=== PATIENT | female | born 1995 | race Caucasian/White ===

== ENCOUNTER 2020-05-21 14:40 | Outpatient (CLI) | payer OTHER, MEDICAID, SELFPAY ==
[2020-05-21 16:12] LABS: Thyroid Stimulating Hormone 1.14 uIU/mL (0.36-3.74)
[2020-05-24 12:05] LABS: Testosterone Free 4.5 pg/mL (0.1-6.4); Testosterone Total 38 ng/dL (2-45)
[2020-05-25 15:21] LABS: DHEA-Sulfate 228 mcg/dL (18-391)
== END 2020-05-21 14:41 | disposition home or self-care (01) ==
PROVIDERS: PCP Family Medicine; Visit Provider Specialist
DX: L68.0 Hirsutism (principal); D22.5 Melanocytic nevi of trunk
CPT/HCPCS: 36415; 82627; 83498; 84402; 84403; 84443; 88305; 88342

== ENCOUNTER 2021-07-10 12:12 | Outpatient (CLI) | payer OTHER, SELFPAY ==
[2021-07-10 13:20] LABS: SARS-CoV-2 RNA PCR Negative (Negative)
== END 2021-07-10 12:13 | disposition home or self-care (01) ==
LOC: CHSLAB 12:15
PROVIDERS: PCP Family Medicine; Visit Provider Family Medicine
DX: J02.9 Acute pharyngitis, unspecified (principal); Z20.822 Contact with and (suspected) exposure to COVID-19
CPT/HCPCS: C9803; U0003; U0005

== ENCOUNTER 2023-05-07 07:08 | Outpatient (CLI) | payer OTHER, SELFPAY ==
--- NOTE | ~2023-05-07 | US_ITS ---
EXAMINATION: US soft tissue abdomen DATE: 05/07/2023 07:33 INDICATION: Localized swelling, mass and lump, unspecified. Palpable mass at umbilicus. TECHNIQUE: Multiple grayscale and Doppler ultrasound images of the abdomen were obtained. COMPARISON: None FINDINGS: There is no abnormal mass or hernia in the patient's area of concern at the umbilicus. IMPRESSION: 1. No abnormal mass or hernia in the patient's area of concern at the umbilicus. Reviewed, dictated and finalized at location E. COOLERS INSTALLER IMPRESSION: 1. No abnormal mass or hernia in the patient's area of concern at the umbilicus .
== END 2023-05-07 07:09 | disposition home or self-care (01) ==
LOC: CHSIMG 07:10
PROVIDERS: PCP Family Medicine; Visit Provider Family Medicine
DX: R22.9 Localized swelling, mass and lump, unspecified (principal)
CPT/HCPCS: 76705

== ENCOUNTER 2024-03-27 15:13 | Outpatient (CLI) | payer OTHER, SELFPAY ==
[2024-03-27 15:27] LABS: Basophils Absolute Auto 0.07 K/mm3 (0.00-0.10); Basophils Percent Auto 0.9 % (0.0-1.0); Eosinophils Absolute Auto 0.45 K/mm3 (0.02-0.50); Hematocrit 39.2 % (35.0-49.0); Hemoglobin 13.1 g/dL (12.0-15.0); Immature Granulocyte Absolute 0.04 K/mm3 (0.00-0.00); Immature Granulocyte Percent A 0.5 % (0.0-0.0); Lymphocytes Absolute Auto 2.09 K/mm3 (1.10-4.50); Lymphocytes Percent Auto 27.7 % (18.0-42.0); Mean Corpuscular HGB Conc 33.4 g/dL (32-36); Mean Corpuscular Hemoglobin 27.8 pg (27.0-31.0); Mean Corpuscular Volume 83.1 fL (78.0-102.0); Mean Platelet Volume 10.9 fl (9.2-11.8); Monocytes Absolute Auto 0.47 K/mm3 (0.10-0.90); Monocytes Percent Auto 6.2 % (2.0-11.0); Neutrophils Absolute Auto 4.43 K/mm3 (1.70-7.20); Neutrophils Percent Auto 58.7 % (50.0-70.0); Platelet Count Result 310 K/mm3 (150-420); Red Blood Count 4.72 M/mm3 (4.20-5.40); Red Cell Distribution Width 13.1 % (11.6-14.4); White Blood Count 7.6 K/mm3 (4.8-10.8)
[2024-03-27 16:53] LABS: Alkaline Phosphatase 118 U/L (46-116); Aspartate Amino Transferase 24 U/L (15-37); Bilirubin,Total 0.5 mg/dL (0.00-1.00); Calcium 9.3 mg/dL (8.5-10.1); Chloride 102 mmol/L (98-108); Estimated Glomerular Filt Rate > 60; Ferritin 40 ng/mL (8-252); Free T4 Free Thyroxine 0.87 ng/dL (0.76-1.46); Glucose 123 mg/dL (70-99); Iron 46 ug/dL (50-170); Potassium 4.2 mmol/L (3.5-5.1); Sodium 139 mmol/L (136-145); Thyroid Stimulating Hormone 1.92 uIU/mL (0.36-3.74); Total Protein 7.5 g/dL (6.4-8.2); Vitamin B12 687 pg/mL (193-986)
[2024-03-27 17:11] LABS: Alanine Aminotransferase 45 U/L (14-59); Anion Gap 10 mmol/L (4-12); Blood Urea Nitrogen 16 mg/dL (7-18); Carbon Dioxide 27 mmol/L (21-32); Osmolality Calculated 290 mOsm/kg (285-295)
[2024-03-28 10:24] LABS: Vitamin D 25 Hydroxy 11 ng/mL (30-100)
[2024-03-29 01:58] LABS: Total Triiodothyronine (T3) 123 ng/dL (76-181)
[2024-03-29 14:44] LABS: Hemoglobin A1C 5.4 % (<5.7)
== END 2024-03-27 15:14 | disposition home or self-care (01) ==
PROVIDERS: PCP Nurse Practitioner Family; Visit Provider Nurse Practitioner Family
DX: R53.83 Other fatigue (principal); R73.09 Other abnormal glucose; Z79.899 Other long term (current) drug therapy
CPT/HCPCS: 36415; 80053; 82306; 82607; 82728; 83036; 83540; 84439; 84443; 84480; 85025

== ENCOUNTER 2024-04-18 12:44 | Outpatient (CLI) | payer OTHER, SELFPAY | END 2024-04-18 12:45 | disposition home or self-care (01) | LOC: CHSLAB 12:48 | PROVIDERS: PCP Nurse Practitioner Family; Visit Provider Specialist | DX: D22.5 Melanocytic nevi of trunk (principal) | CPT/HCPCS: 88305 ==

== ENCOUNTER 2024-06-28 10:54 | Outpatient (CLI) | payer OTHER, SELFPAY ==
[2024-06-28 11:48] LABS: Alanine Aminotransferase 48 U/L (14-59); Albumin Level 4.1 g/dL (3.4-5.0); Alkaline Phosphatase 143 U/L (46-116); Anion Gap 13 mmol/L (4-12); Aspartate Amino Transferase 31 U/L (15-37); Bilirubin,Total 0.5 mg/dL (0.00-1.00); Blood Urea Nitrogen 13 mg/dL (7-18); Calcium 9.4 mg/dL (8.5-10.1); Carbon Dioxide 26 mmol/L (21-32); Chloride 103 mmol/L (98-108); Estimated Glomerular Filt Rate > 60; Glucose 98 mg/dL (70-99); Iron 51 ug/dL (50-170); Osmolality Calculated 294 mOsm/kg (285-295); Potassium 3.8 mmol/L (3.5-5.1); Sodium 142 mmol/L (136-145)
--- OUTSIDE RECORDS SUMMARY | 2024-06-28 12:36 | XMS_ITS | Referral Summary ---
Author Organization [facility] Address [address] [place] [address] Care Team Providers Care Derrick Boat Runner Name Role Phone Unavailable Primary Care Provider Unavailabl e Source Comments [facility],non-the rehabilitation [facility] Affiliates and Associated Physician Practices is amultiple site organization consisting of ambulatory clinics and hospital sitesin [place], [place], [place] and [place]. This disclosure is being madepursuant to the Care Everywhere program and may not contain all information available regarding this patient. Last updated 18.[facility] Social History Tobacco Use Types Packs/Day Years Used Date Smoking Tobacco: Never Assessed Sex and Gender Information Value Date Recorded Sex Assigned at Not on file Gender Identity Not on file Sexual Orientation Not on file Plan of Treatment Not on file
--- OUTSIDE RECORDS SUMMARY | 2024-06-28 12:36 | XMS_ITS | Clinical Summary ---
Author Organization [facility] Address [address] [place] [address] Care Team Providers Care Paper Carrier Name Role Phone Unavailable Primary Care Provider Unavailabl e Source Comments [facility],non-owned Affiliates and Associated Physician Practices is amultiple site organization consisting of ambulatory clinics and hospital sitesin [place], [place], [place] and [place]. This disclosure is being madepursuant to the Care Everywhere program and may not contain all information available regarding this patient. Last updated 18.[facility] [employer] Social History Tobacco Use Types Packs/Day Years Used Date Smoking Tobacco: Never Assessed Sex and Gender Information Value Date Recorded Sex Assigned at Not on file Gender Identity Not on file Sexual Orientation Not on file Plan of Treatment Health Maintenance Due Date Last Done Comments PAP SMEAR 1995 HIV SCREENING 10/15/2010 HEPATITIS C SCREENING 10/11/2013 DTAP/TDAP/TD VACCINES (1 - Tdap) 10/15/2014 HEPATITIS B VACCINE (1 of 3 - 19+ 3-dose series) 10/15/2014 COVID-19 VACCINE ( - 2023-2 5 season) 2024 INFLUENZA VACCINE (#1) 2024 DEPRESSION SCREENING 05/03/2024 ZOSTER VACCINE (1 of 2) 10/15/2045 HIB VACCINE Aged Out No longer eligi ble based on patient's age to complete this topic HPV VACCINE Aged Out No longer eligi ble based on patient's age to complete this topic MENINGOCOCCAL (Group B) VACCINE Aged Out No longer eligible based on patient's age to complete this topic MENINGOCOCCAL VACCINE Aged Out No marc emmie eligible based on patient's age to complete this topic PNEUMOCOCCAL VACCINE Aged Out No long er eligible based on patient's age to complete this topic
--- OUTSIDE RECORDS SUMMARY | 2024-06-28 12:36 | XMS_ITS | Patient Health Summary ---
Author Organization [facility] Address [address] [place] [address] Care Team Providers Care Microwave Supervisor Name Role Phone Unavailable Primary Care Provider Unavailabl e Note from [facility],non-owned Affiliates and Associated Physician Practices is amultiple site organization consisting of ambulatory clinics and hospital sitesin [place], [place], [place] and [place]. This disclosure is being madepursuant to the Care Everywhere program and may not contain all information available regarding this patient. Last updated 18.[facility] [employer] Social History Tobacco Use Types Packs/Day Years Used Date Smoking Tobacco: Never Assessed Sex and Gender Information Value Date Recorded Sex Assigned at Not on file Gender Identity Not on file Sexual Orientation Not on file Procedures * GROSS + MICRO EXAM(Performed 11/12/1997) Results * GROSS + MICRO EXAM (11/12/1997 11:50 AM CDT) Result CASE NUMBER [id number] [facility] PATH REPORT Comment: ORDERING PHYSICIAN JACKY TILLMAN SPECIMEN TYPE Polyp-Rectal CLINICAL HISTORY The patient is a 2-year-old girl with a history of rectal polyps who underwent proctoscopy and excision of rectal polyps. GROSS DESCRIPTION The specimen is received in a saline filled container labeled with the patient's name rectal polyp and consists of one oval, monroy-brown, somewhat rubbery tissue fragment which measures 1 cm in diameter. The specimen is bisected and entirely submitted in cassette A1 . (CG/hm) MICROSCOPIC DESCRIPTION 1 slide, H/E DIAGNOSIS DIAGNOSIS RECTAL POLYP - JUVENILE (RETENTION, INFLAMMATORY) POLYP. Glass Belt Sander KATARINA TEJADA RESIDENT IN PATHOLOG Janel Tabor M.D. PATHOLOGIST Bg Campos M.D. ELECTRONICALLY EPHRAIM Bg Campos MISCELLANEOUS SAMPLES / Unknown 11/12/1997 11:50 AM CDT 11/12/1997 11:57 AM CDT Historical Provider LAB - PATHOLOGY/C YTOLOGY ORDERABLES [facility] PATH REPORT
== END 2024-06-28 10:55 | disposition home or self-care (01) ==
LOC: CHSLAB 10:56
PROVIDERS: PCP Nurse Practitioner Family; Visit Provider Nurse Practitioner Family
DX: E55.9 Vitamin D deficiency, unspecified (principal); E61.1 Iron deficiency; R73.09 Other abnormal glucose
CPT/HCPCS: 36415; 80053; 82306; 83540

== ENCOUNTER 2024-06-29 12:45 | Outpatient (CLI) | payer OTHER, SELFPAY | END 2024-06-29 12:46 | disposition home or self-care (01) | LOC: CHSCARD 12:46 | PROVIDERS: PCP Nurse Practitioner Family; Visit Provider Nurse Practitioner Family | DX: R06.2 Wheezing (principal); R94.2 Abnormal results of pulmonary function studies | CPT/HCPCS: 94060; 94726; 94729 ==

== ENCOUNTER 2024-09-15 15:24 | Emergency (ER) | payer OTHER, SELFPAY ==
--- NOTE | ~2024-09-15 | XR_ITS ---
XR elbow RT min 3V Ordering provider: Adiel Feliz MD History: . Dog bite, Rt. elbow pain/contusions . Comparison: None. FINDINGS: BONES: No acute fracture or dislocation. JOINT SPACES: Normal. SOFT TISSUES: Unremarkable. No definite joint effusion. IMPRESSION: No acute osseous abnormality of the right elbow. Reviewed, dictated and finalized at location A.
--- NOTE | ~2024-09-15 | XR_ITS ---
XR forearm RT 2V Ordering provider: Adiel Feliz MD History: . Dog bite, Rt. forearm contusions/ pain/ swelling . Comparison: None. FINDINGS: BONES: No acute fracture or dislocation. JOINT SPACES: Normal. SOFT TISSUES: Normal. IMPRESSION: No acute osseous abnormality right forearm. Reviewed, dictated and finalized at location A.
[2024-09-15 15:24] VITALS: BP 144/93; PULSE 129; RESP 16; TEMP 37.3; O2SAT 94
--- OUTSIDE RECORDS SUMMARY | 2024-09-15 15:25 | XMS_ITS | Clinical Summary ---
Author Organization [facility] Address [address] [place] [address] Care Team Providers Care Auricular Therapist Name Role Phone Unavailable Primary Care Provider Unavailabl e Source Comments [facility],non-[facility] Affiliates and Associated Physician Practices is amultiple site organization consisting of ambulatory clinics and hospital sitesin [place], [place], [place] and [place]. This disclosure is being madepursuant to the Care Everywhere program and may not contain all information available regarding this patient. Last updated 18.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 Gender Identity Not on file Sexual Orientation Not on file Plan of Treatment Health Maintenance Due Date Last Done Comments HIV SCREENING 10/15/2010 HEPATITIS C SCREENING 10/11/2013 DTAP/TDAP/TD VACCINES (1 - Tdap) 10/15/2014 HEPATITIS B VACCINE (1 of 3 - 19+ 3-dose series) 10/15/2014 COVID-19 VACCINE ( - 2023-2 5 season) 2024 DEPRESSION SCREENING 05/03/2024 INFLUENZA VACCINE (Season Ended) 2025 ZOSTER VACCINE (1 of 2) 10/15/2045 HIB VACCINE Aged Out No longer eligi ble based on patient's age to complete this topic HPV VACCINE Aged Out No longer eligi ble based on patient's age to complete this topic MENINGOCOCCAL (Group B) VACC INE SHARED DECISION-MAKING Aged Out No longer eligibl e based on patient's age to complete this topic MENINGOCOCCAL GROUPS A/C/Y/W VACCINE Aged Out No longer eligible b ased on patient's age to complete this topic PNEUMOCOCCAL VACCINE Aged Out No long er eligible based on patient's age to complete this topic Insurance [facility] MEDICAID - OUT OF STATE
--- NOTE | 2024-09-15 15:27 | ED_ITS ---
HPI - General Adult General Chief complaint: Animal Bite Stated complaint: dog bite Time Seen by Provider: 09/15/24 15:27 Source: patient Mode of arrival: ambulatory Limitations: no limitations History of Present Illness HPI narrative: 28-year-old white female stridor break up her parents dogs fight it in the right forearm with 2 puncture wounds. . Tetanus shot given in the emergency department. She is also short of breath having asthma attack which started today. Nonproductive cough short of breath at rest denies any weakness numbness or tingling or paresthesias otherwise she has been eating and drinking voiding and stooling fine without any rash lumps or bumps or any other injuries besides right forearm. Denies any dizziness or lightheadedness. Denies any other pain besides her right arm. Related Data Home Medications Medication Instructions Recorded Confirmed Last Taken Type spironolactone 100 mg tablet mg PO 03/27/24 06/28/24 Unknown History Allergies Allergy/AdvReac Type Severity Reaction Status Date / Time No Known Allergies Allergy Verified 09/15/24 15:38 Review of Systems Review of Systems: All systems reviewed & are unremarkable except as noted in HPI and below PMFSH Family History Family History Mother Diabetes mellitus Social History Social History Smoking status: Never smoker Second hand tobacco smoke exposure: No Alcohol intake: current Drinks per week: 1 Substance use: never Do You Feel Safe in your Home?: Yes Lack of Transportation: No Lack of Food: Never True Current Housing: I Have Housing Concerned About Future Housing: No Difficulty Paying Gas/Electric Bills: No Difficulty Paying for Meds: No Currently Unemployed: No Education: Associate Degree Exam Narrative: White female tachypneic wheezing conjunctiva pink sclera nonicteric oropharynx is clear neck is supple no lymphadenopathy lungs: bronchial breathsounds with fair air exchange heart is regular rate rhythm without murmurs gallops or rubs abdomen soft nontender extremities right forearms has 2 puncture wounds and some bruising with no loss of range of motion neurovascular is intact capillary refill is normal. Pressor extremities show full range of motion and nontender. Neurologic was she is alert and oriented motor and sensory grossly intact. Course Vital Signs Vital signs: Vital Signs Temperature 37.3 C 09/15/24 15:24 Pulse Rate 129 H 09/15/24 15:24 Respiratory Rate 16 09/15/24 15:24 Blood Pressure 144/93 H 09/15/24 15:24 Pulse Oximetry 94 09/15/24 15:24 Oxygen Delivery Room Air 09/15/24 15:24 Temperature 37.3 C 09/15/24 15:24 Pulse Rate 129 H 09/15/24 15:24 Respiratory Rate 16 09/15/24 15:24 Blood Pressure 144/93 H 09/15/24 15:24 Pulse Oximetry 94 09/15/24 15:24 Oxygen Delivery Room Air 09/15/24 15:24 Medical Decision Making MDM Narrative Medical decision making narrative: Patient is placed in room 2 she was given her own inhaler she took 1 puff with poor technique she is given albuterol. Evidently this worker she says her breathing is normal now. She is given a tetanus and ejection wounds were cleansed and bandaged x-ray of her right elbow and forearm were obtained. x- rays were negative as independently interpreted by me and over-read by the radiologist. Her wounds were cleansed with soap water and Band-Aids were applied. She will get Augmentin 875 intake twice a day for 5 days and take Tylenol and/or ibuprofen for pain returning signs of infection or if she gets worse. Patient was given proper instructions how to use her hand held albuterol inhaler. Differential Diagnosis Differential Diagnosis: dog bite cellulitis foreign body Vital Signs Vital Signs: Vital Signs Temperature 37.3 C 09/15/24 15:24 Pulse Rate 129 H 09/15/24 15:24 Respiratory Rate 16 09/15/24 15:24 Blood Pressure 144/93 H 09/15/24 15:24 Pulse Oximetry 94 09/15/24 15:24 Oxygen Delivery Room Air 09/15/24 15:24 Temperature 37.3 C 09/15/24 15:24 Pulse Rate 129 H 09/15/24 15:24 Respiratory Rate 16 09/15/24 15:24 Blood Pressure 144/93 H 09/15/24 15:24 Pulse Oximetry 94 09/15/24 15:24 Oxygen Delivery Room Air 09/15/24 15:24 Discharge Plan Discharge Clinical Impression: Dog bite of right forearm Qualifiers: Encounter type: initial encounter Qualified Code(s): S51.851A - Open bite of right forearm, initial encounter Asthma exacerbation Qualifiers: Asthma severity: mild Asthma persistence: unspecified Qualified Code(s): J45.901 - Unspecified asthma with (acute) exacerbation Patient Disposition: Home Condition: Stable Instructions: Antibiotic Form Additional Instructions: Augmentin 875 twice a day for 5 days. Tylenol and/or ibuprofen for pain as needed. Return if signs of infection. Return if you get worse or develops any new symptoms. Take her albuterol and inhaler as instructed as needed. Patient Language: Gambian Prescriptions: New amoxicillin-pot clavulanate 875-125 mg tablet 1 tablet PO Q12H 5 Days Qty: 10 0RF No Action spironolactone 100 mg tablet PO rizatriptan 10 mg tablet 10 mg PO Q2-4H PRN (Reason: migraine headache) Qty: 20 2RF divalproex 250 mg tablet,delayed release (DR/EC) 250 mg PO Q12H Qty: 180 3RF albuterol sulfate [Ventolin HFA] 90 mcg/actuation HFA aerosol inhaler 1 puff inhalation Q4H PRN (Reason: shortness of breath or wheezing) Qty: 8 2RF cholecalciferol (vitamin D3) 1,250 mcg (50,000 unit) capsule See Rx Instructions .ROUTE .COMPLEX Qty: 12 0RF Dose Instruction: Take 1 capsule by mouth once a week Rx Instructions: Take 1 capsule by mouth once a week Follow-up/Referrals: Rita Troy [address]HW[address] TRAFFIC CONTROL TECHNICIAN [Primary Care Provider] - Time of Disposition: 16:18
[2024-09-15] MEDS: TETANUS,DIPHTHERIA,AC PERTUSSIS ADULT 0.5 ML (ADACEL) IM (15:47)
--- OUTSIDE RECORDS SUMMARY | 2024-09-15 16:03 | XMS_ITS | Clinical Summary ---
Author Organization [facility] Address [address] [address] Care Team Providers Care Diving Fisher Name Role Phone Unavailable Primary Care Provider Unavailabl e Source Comments [facility] Affiliates and Associated Physician Practices is amultiple site organization consisting of ambulatory clinics and hospital sitesin [place], [place], [place] and [place]. This disclosure is being madepursuant to the Care Everywhere program and may not contain all information available regarding this patient. 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
--- NOTE | 2024-09-15 16:25 | PC.NURSE ---
[facility] animal bite form faxed.
[2024-09-15 16:31] VITALS: BP 132/81; PULSE 97; RESP 16; TEMP 37.3; O2SAT 97
== END 2024-09-15 16:31 | disposition home or self-care (01) ==
PROVIDERS: Emergency Provider Emergency Medicine; PCP Nurse Practitioner Family
DX: S51.851A Open bite of right forearm, initial encounter (principal); J45.901 Unspecified asthma with (acute) exacerbation; Z23 Encounter for immunization; W54.0XXA Bitten by dog, initial encounter
CPT/HCPCS: 73080; 73090; 90471; 90715; 99283

== ENCOUNTER 2025-04-16 22:25 | Emergency (ER) | payer OTHER, SELFPAY ==
--- NOTE | ~2025-04-16 | XR_ITS ---
EXAMINATION: XR knee LT min 4V DATE: 04/16/2025 23:02 INDICATION: Injury TECHNIQUE: Left knee x-rays were obtained. COMPARISON: None. FINDINGS: No fracture lucency. No radiopaque foreign body. IMPRESSION: 1. No displaced fracture lucency seen. Reviewed, dictated and finalized at location A. MUTUEL TICKET CASHIER
[2025-04-16 22:48] VITALS: BP 161/96; PULSE 88; RESP 20; TEMP 36.3; O2SAT 97
--- NOTE | 2025-04-16 22:52 | ED.LOWEXIN ---
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 Pain worse with certain movement, better if she is staying still. She denies any fever or chills or nausea or vomiting as Related Data Home Medications ?Medication ?Instructions ?Recorded ?Confirmed ?Last Taken ?Type spironolactone 100 mg tablet mg PO 03/27/24 10/23/24 Unknown History Allergies Allergy/AdvReac Type Severity Reaction Status Date / Time No Known Allergies Allergy Verified 04/16/25 22:49 Review of Systems Review of Systems: All systems reviewed & are unremarkable except as noted in HPI and below PMFSH Family History Family History Mother Diabetes mellitus Social History Social History Smoking status: Never smoker Second hand tobacco smoke exposure: No Alcohol intake: current Drinks per week: 1 Substance use: never Lack of Transportation: No Lack of Food: Never True Current Housing: I Have Housing Concerned About Future Housing: No Difficulty Paying Gas/Electric Bills: No Difficulty Paying for Meds: No Currently Unemployed: No Education: Associate Degree Exam Narrative: General appearance: Well-developed, well-nourished Skin: Normal color Chest and respiratory: Airway patent, no respiratory distress, no accessory muscle use Heart: Regular rate/rhythm Abdomen: Soft, nontender, no organomegaly, quiet bowel sounds Vascular: Normal peripheral pulses, normal capillary refill. Musculoskeletal: Left knee exam showed mild diffuse tenderness anteriorly, slightly swollen, slight limited range of motion because of pain, no bruises or rash Neurologic: Alert and oriented ?3, CLOTHES MODEL is normal as tested, no gross motor deficit Course Vital Signs Vital signs: Vital Signs Temperature 36.3 C L 04/16/25 22:48 Pulse Rate 88 04/16/25 22:48 Respiratory Rate 20 04/16/25 22:48 Blood Pressure 161/96 H 04/16/25 22:48 Pulse Oximetry 97 04/16/25 22:48 Oxygen Delivery Room Air 04/16/25 22:48 Temperature 36.3 C L 04/16/25 22:48 Pulse Rate 88 04/16/25 22:48 Respiratory Rate 20 04/16/25 22:48 Blood Pressure 161/96 H 04/16/25 22:48 Pulse Oximetry 97 04/16/25 22:48 Oxygen Delivery Room Air 04/16/25 22:48 MDM MDM Narrative Medical decision making narrative: Patient presents with left knee pain for days, works as a executive housekeeper, unknown specific trauma or injury. Differential diagnosis sprain/strain knee with Dr. X-ray showed no acute osseous abnormality Discharged on splint on naproxen. Differential Diagnosis Differential Diagnosis: As above Imaging Data My impression: Left knee x-ray showed no acute osseous abnormality Critical Care Time Critical Care Time Critical Care Time: No Discharge Plan Discharge Clinical Impression: Knee pain, left Patient Disposition: Home Condition: Stable Instructions: Knee Pain (ED) Additional Instructions: Return if symptoms are worsening , call your family physician for appointment, take Tylenol as as needed for aches and pain, continue home medications. Patient Language: Citizen Of [place] Prescriptions: New naproxen [Naprosyn] 500 mg tablet 500 mg PO BID PRN (Reason: pain) Qty: 14 0RF No Action prednisone 20 mg tablet 40 mg PO DAILY Qty: 10 0RF montelukast 10 mg tablet 10 mg PO QPM Qty: 30 3RF fluticasone propion-salmeterol [Advair Diskus] 500-50 mcg/dose blister with device 1 inh inhalation Q12H Qty: 60 3RF albuterol sulfate [Ventolin HFA] 90 mcg/actuation HFA aerosol inhaler 1 puff inhalation Q4H PRN (Reason: shortness of breath or wheezing) Qty: 8 2RF spironolactone 100 mg tablet PO rizatriptan 10 mg tablet 10 mg PO Q2-4H PRN (Reason: migraine headache) Qty: 20 2RF divalproex 250 mg tablet,delayed release (DR/EC) 250 mg PO Q12H Qty: 180 3RF cholecalciferol (vitamin D3) 1,250 mcg (50,000 unit) capsule See Rx Instructions .ROUTE .COMPLEX Qty: 12 1RF Dose Instruction: Take 1 capsule by mouth once a week Rx Instructions: Take 1 capsule by mouth once a week Follow-up/Referrals: Pro Porter MD [Physician, Orthopedics] - 04/23/25 Rita Troy NP [Primary Care Provider, Family Practice] Stand Alone Forms: Work/School Release IP
[2025-04-16] MEDS: IBUPROFEN 400 MG TABLET 800 MG PO (23:08)
[2025-04-16] MEDS: ACETAMINOPHEN 500 MG TABLET 1000 MG PO (23:09)
[2025-04-16 23:27] VITALS: BP 140/87; PULSE 74; RESP 18; O2SAT 99
== END 2025-04-16 23:27 | disposition home or self-care (01) ==
PROVIDERS: Emergency Provider Emergency Medicine; PCP Nurse Practitioner Family
DX: M25.562 Pain in left knee (principal)
CPT/HCPCS: 73564; 99283; A9270; L1830